=== PATIENT | male | born 1960 | race African-American/Black ===

== ENCOUNTER 2018-01-11 12:57 | Emergency (ER) | payer MEDICARE ==
[~2018-01-11] VITALS: Ht 175.3 cm; Wt 90.7 kg
[2018-01-11 13:51] LABS: BASOPHILS # (AUTO) 0.1 (0.0-0.1); BASOPHILS % 0.8 % (0.0-1.0); EOSINOPHILS # (AUTO) 0.2 (0.0-0.4); EOSINOPHILS % 2.5 % (0.0-6.0); HEMOGLOBIN 10.3 g/dL (14.0-18.0); LYMPHOCYTES # (AUTO) 0.8 (1.0-3.2); LYMPHOCYTES % 12.5 % (18.0-39.1); MEAN CORPUSCULAR HEMOGLOBIN 30.5 pg (28-32); MEAN CORPUSCULAR HGB CONC 33.2 g/dL (31-35); MEAN CORPUSCULAR VOLUME 91.7 fL (81-99); MONOCYTES # (AUTO) 0.6 (0.2-0.8); NEUTROPHILS # (AUTO) 4.8 (2.1-6.9); NEUTROPHILS % 74.9 % (38.7-80.0); PLATELET COUNT 140 x10e3/uL (140-360); RED BLOOD COUNT 3.38 x10e6/uL (4.3-5.7); RED CELL DISTRIBUTION WIDTH 17.2 % (11.7-14.4)
[2018-01-11 14:00] LABS: INR 1.3; PROTHROMBIN TIME 15.2 seconds (11.9-14.5)
[2018-01-11] MEDS ORDERED: FUROSEMIDE INJ 10 MG/ML 10 ML VIAL IV ONE (14:00)
[2018-01-11 14:01] LABS: PARTIAL THROMBOPLASTIN TIME 35.9 seconds (23.8-35.5)
--- NOTE | 2018-01-11 14:04 | Diagnostic Imaging Report ---
EXAMINATION: CHEST SINGLE (PORTABLE) COMPARISON: None INDICATION: Shortness of breath DISCUSSION: Frontal view of the chest obtained at 1337 hours. HEART AND MEDIASTINUM: The heart is enlarged. The aorta is normal in morphology. No hilar lymphadenopathy. LINES: None. LUNGS: Diffuse pulmonary vascular prominence. Pulmonary vessels are indistinct. There is diffuse groundglass attenuation throughout the lungs. No confluent infiltrates. PLEURA: No pleural effusion or pneumothorax. BONES AND SOFT TISSUES: No focal osseous lesion. The soft tissues are normal. IMPRESSION: Cardiomegaly and pulmonary edema. Signed by: Dr. Reynaldo Cook MD on 01/11/2018 2:01 PM
[2018-01-11 14:07] LABS: ALBUMIN 3.5 g/dL (3.5-5.0); ALBUMIN/GLOBULIN RATIO 0.8 (0.8-2.0); ANION GAP 22.1 mmol/L (8-16); CALCIUM 8.8 mg/dL (8.4-10.2); CREATININE, SERUM 11.56 mg/dL (0.72-1.25); POTASSIUM 5.1 mmol/L (3.5-5.1)
[2018-01-11 14:13] LABS: CREATINE KINASE MB 7.6 ng/mL (0-5.0)
--- NOTE | 2018-01-11 16:56 | Consultation ---
DATE OF CONSULTATION: January 11, 2018 NEPHROLOGY CONSULTATION HISTORY OF PRESENT ILLNESS: Mr. Loco is a 57-year-old male, resident of [place], with end-stage renal disease, hypertension. He was traveling and came to [place] for a family reunion. He stopped in [place] and received dialysis for 2 hours, proceeded with his travel to the [place] area and developed shortness of breath. PAST MEDICAL HISTORY: As above. REVIEW OF SYSTEMS: Shortness of breath, denied any chest pain, fever, chills, masses, rashes, abdominal pain, nausea, vomiting, diarrhea or constipation. FAMILY HISTORY: Noncontributory. SOCIAL HISTORY: Positive for tobacco use and alcohol use. MEDICATIONS: Per medication list. PHYSICAL EXAMINATION GENERAL: Alert, oriented, obese adult male in no acute distress with mild shortness of breath. VITAL SIGNS: Noted and reviewed. HEENT: Fundi not visualized. Conjunctivae anicteric. Head normocephalic, atraumatic. Extraocular movements full. NECK: Supple. No JVD. No lymphadenopathy. LUNGS: Bilateral rales. HEART: Normal heart sounds. No additional sounds. ABDOMEN: Obese, soft, nontender, no organomegaly. EXTREMITIES: Positive for 1+ edema. Dialysis access left upper arm AV fistula with positive thrill. NEUROLOGIC: Grossly intact, nonfocal. LABORATORY DATA: Noted and reviewed. ASSESSMENT AND PLAN 1. End-stage renal disease. The patient will receive hemodialysis per orders, ultrafiltration as tolerated. 2. Fluid overload. The patient will receive hemodialysis for adequate ultrafiltration. 3. Hyperkalemia, mild. The patient is receiving hemodialysis. 4. Disposition: The patient may be discharged home from a nephrology standpoint after his dialysis treatment in the emergency room. I have discussed my evaluation, assessment and plan of care with the patient and with the emergency room physician. Job#: [id number]
[2018-01-11 18:45] VITALS: BP 166/94
== END 2018-01-11 19:05 | disposition home or self-care (01) ==
LOC: ER 12:57
DX: R06.09 Other forms of dyspnea (principal); I50.1 Left ventricular failure, unspecified; I12.0 Hypertensive chronic kidney disease with stage 5 chronic kidney disease or end stage renal disease; E11.22 Type 2 diabetes mellitus with diabetic chronic kidney disease; N18.6 End stage renal disease; Z99.2 Dependence on renal dialysis
CPT/HCPCS: 36415; 71045; 80053; 80320; 82550; 82553; 83880; 84484; 85025; 85610; 85730; 90962; 93005; 99284; J1940